=== PATIENT | male | born 1950 | race American Indian/Alaskan Native ===

== ENCOUNTER 2019-05-03 19:30 | Emergency (ER) | payer MEDICARE ==
[2019-05-03 19:38] VITALS: BP 142/95
[2019-05-03] MEDS ORDERED: BOOSTRIX IM ONE ×2 (19:39→22:03)
--- NOTE | 2019-05-03 19:39 | Emergency Department Report ---
Blank Doc - Documentation Documentation: 68 y o male presents with lac to right index finger using the edge clippers tetanus unknown tet ordered
[2019-05-03] MEDS ORDERED: TYLENOL PO ONE (20:55)
[2019-05-03] MEDS ORDERED: TYLENOL ONE (20:55)
[2019-05-03] MEDS ORDERED: NORCO 10/325 PO ONE (23:15)
--- NOTE | 2019-05-04 00:08 | XRay Report ---
PROCEDURE: XR FINGER(S) 2+V LT TECHNIQUE: AP view of the left hand and 2 additional views of the left index finger HISTORY: left finger lac COMPARISONS: None FINDINGS: The bones are normally aligned and mineralized. There is mild osteophyte formation at the proximal in terphalangeal joint of the index finger. Otherwise, the joints are normally aligned and well preserve d. There is no evidence of acute fracture or subluxation. The soft tissues are unremarkable. 

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
== END 2019-05-04 00:45 | disposition home or self-care (01) ==
LOC: ED 19:30
DX: S61.211A Laceration without foreign body of left index finger without damage to nail, initial encounter (principal); Z98.890 Other specified postprocedural states; W26.8XXA Contact with other sharp object(s), not elsewhere classified, initial encounter; Y93.89 Activity, other specified; Y92.89 Other specified places as the place of occurrence of the external cause; Y99.8 Other external cause status
CPT/HCPCS: 90471; 90715

== ENCOUNTER 2020-04-02 08:25 | Emergency (ER) | payer MEDICARE, OTHER ==
[2020-04-02 08:33] VITALS: BP 146/104
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
== END 2020-04-02 10:31 | disposition home or self-care (01) ==
LOC: ED 08:25
DX: S16.1XXA Strain of muscle, fascia and tendon at neck level, initial encounter (principal); S00.83XA Contusion of other part of head, initial encounter; Z98.890 Other specified postprocedural states; Z79.899 Other long term (current) drug therapy; V49.49XA Driver injured in collision with other motor vehicles in traffic accident, initial encounter; Y92.410 Unspecified street and highway as the place of occurrence of the external cause; Y93.89 Activity, other specified; Y99.8 Other external cause status
CPT/HCPCS: 99283